=== PATIENT | female | born 1955 | race Caucasian/White ===

== ENCOUNTER 2016-10-31 10:54 | Emergency (ER) | payer MEDICARE ==
[~2016-10-31] VITALS: Ht 182.9 cm; Wt 76.0 kg
[2016-10-31 10:57] VITALS: BP 124/71
[2016-10-31] MEDS ORDERED: HYDROmorphone 1 MG/ML, 1ML ONE ×2 (11:26→12:08)
[2016-10-31] MEDS ORDERED: HYDROmorphone 1 MG/ML, 1ML IM ONE ×2 (11:30→12:30)
== END 2016-10-31 13:38 | disposition home or self-care (01) ==
LOC: ED 13:00
DX: S22.31XA Fracture of one rib, right side, initial encounter for closed fracture (principal); R91.1 Solitary pulmonary nodule; W01.0XXA Fall on same level from slipping, tripping and stumbling without subsequent striking against object, initial encounter; Y93.89 Activity, other specified; Y92.89 Other specified places as the place of occurrence of the external cause; Y99.9 Unspecified external cause status
CPT/HCPCS: 71250; 96372; 99284; J1170

== ENCOUNTER 2017-02-01 10:27 | Emergency (ER) | payer MEDICARE ==
[~2017-02-01] VITALS: Ht 182.9 cm; Wt 75.0 kg
[2017-02-01] MEDS ORDERED: ONDANSETRON 2MG/ML, 2ML IVPush ONE (11:30)
[2017-02-01] MEDS ORDERED: SODIUM CHLORIDE FLUSH 10ML SYR IVF ONE (11:30)
[2017-02-01] MEDS ORDERED: LIDOCAINE 1%, 10ML INFIL ONE (11:30)
[2017-02-01] MEDS ORDERED: SODIUM CHLORIDE 0.9% 1,000ML IVBOLUS ONE (11:30)
[2017-02-01] MEDS ORDERED: ONDANSETRON 2MG/ML, 2ML ONE (11:48)
[2017-02-01 11:50] LABS: HEMATOCRIT 46.3 % (34.6-47.8); HEMOGLOBIN 15.6 g/dL (11.7-16.4); WHITE BLOOD COUNT 11.8 x10^3/uL (3.4-10)
[2017-02-01] MEDS ORDERED: BUPR300T4 PO (11:55)
[2017-02-01] MEDS ORDERED: LEVO75TA5 PO (11:55)
[2017-02-01] MEDS ORDERED: FLUO20CA19 PO (11:55)
[2017-02-01] MEDS ORDERED: LAMO300T2 PO (11:55)
[2017-02-01] MEDS ORDERED: TRAZ300T2 PO (11:55)
[2017-02-01] MEDS ORDERED: METH20TA5 PO (11:55)
[2017-02-01] MEDS ORDERED: LORA2TAB PO (11:55)
[2017-02-01 12:03] LABS: ASPARTATE AMINO TRANSFERASE 33 U/L (15-37); BLOOD UREA NITROGEN 13 mg/dL (7-18)
[2017-02-01 12:08] LABS: IS PT STATUS REG ER OR PRE ER? YES
[2017-02-01 13:36] VITALS: BP 112/75
== END 2017-02-01 13:47 | disposition home or self-care (01) ==
LOC: ED 13:45
DX: R55 Syncope and collapse (principal); S01.81XA Laceration without foreign body of other part of head, initial encounter; X58.XXXA Exposure to other specified factors, initial encounter; Y93.89 Activity, other specified; Y92.89 Other specified places as the place of occurrence of the external cause; Y99.9 Unspecified external cause status; R91.1 Solitary pulmonary nodule
CPT/HCPCS: 12011; 36415; 71010; 80053; 83605; 83880; 84484; 85025; 93005; 96361; 96374; 99285; J2405; J7030